=== PATIENT | female | born 1985 | race Caucasian/White ===

== ENCOUNTER 2017-03-28 18:52 | Emergency (ER) | payer MEDICAID ==
[~2017-03-28] VITALS: Ht 162.6 cm; Wt 66.1 kg
[~2017-03-28 18:52] MED LIST: PRED20TA PO
[2017-03-28] MEDS ORDERED: HYDROcodone/acetaminophen 5mg/325mg tablet PO ONE (20:05)
[2017-03-28] MEDS ORDERED: amox tr/potassium clavulanate 875/125mg TAB PO ONE (20:05)
[2017-03-28] MEDS ORDERED: HYDROcodone/acetaminophen 10/325mg tab PO ONE (20:05)
[2017-03-28] MEDS ORDERED: AMOX-422 PO (20:06)
[2017-03-28] MEDS ORDERED: HYDR-569 PO (20:06)
[2017-03-28] MEDS ORDERED: NAPR-56 PO (20:06)
[2017-03-28 20:19] VITALS: BP 146/82
== END 2017-03-28 20:20 | disposition home or self-care (01) ==
LOC: ER 18:52
DX: K04.7 Periapical abscess without sinus (principal)
CPT/HCPCS: 99284

== ENCOUNTER 2017-05-26 18:22 | Emergency (ER) | payer MEDICAID ==
[~2017-05-26] VITALS: Ht 162.6 cm; Wt 62.6 kg
[~2017-05-26 18:22] MED LIST changes: +HYDR-569 PO
[2017-05-26] MEDS ORDERED: HYDROcodone/acetaminophen 10/325mg tab PO ONE (21:20)
[2017-05-26 21:22] VITALS: BP 147/84
[2017-05-26] MEDS ORDERED: HYDR-565 PO (21:24)
[2017-05-26] MEDS ORDERED: ondansetron 4mg rapidly disintigrating tab PO ONE (22:00)
== END 2017-05-26 22:06 | disposition home or self-care (01) ==
LOC: ER 18:22
DX: S62.356A Nondisplaced fracture of shaft of fifth metacarpal bone, right hand, initial encounter for closed fracture (principal); Z90.49 Acquired absence of other specified parts of digestive tract; Z79.899 Other long term (current) drug therapy; Z91.018 Allergy to other foods; W22.8XXA Striking against or struck by other objects, initial encounter; Y93.89 Activity, other specified; Y92.89 Other specified places as the place of occurrence of the external cause; Y99.9 Unspecified external cause status
CPT/HCPCS: 29125; 73130; 99284; A6449

== ENCOUNTER 2017-06-08 10:58 | Outpatient (CLI) | payer MEDICAID ==
[2017-06-08 11:00] VITALS: BP 122/82
== END 2017-06-08 12:00 | disposition home or self-care (01) ==
LOC: ORTHO 10:58
PROVIDERS: ATTEND Nurse Practitioner Family
DX: S62.326A Displaced fracture of shaft of fifth metacarpal bone, right hand, initial encounter for closed fracture (principal); F32.9 Major depressive disorder, single episode, unspecified; F41.9 Anxiety disorder, unspecified; Z91.018 Allergy to other foods; X58.XXXA Exposure to other specified factors, initial encounter; Y93.89 Activity, other specified; Y92.89 Other specified places as the place of occurrence of the external cause; Y99.8 Other external cause status
CPT/HCPCS: 29260; 73130; 99213

== ENCOUNTER 2018-10-09 16:32 | Emergency (ER) | payer MEDICAID ==
[~2018-10-09] VITALS: Ht 162.6 cm; Wt 79.0 kg
[~2018-10-09 16:32] MED LIST changes: +HYDR-4383 PO; -HYDR-569 PO
[2018-10-09] MEDS ORDERED: ondansetron/PF 4mg/2ml inj IV ONE (16:55)
[2018-10-09] MEDS ORDERED: normal saline 1000ML IV soln IVB ONE (16:55)
[2018-10-09] MEDS ORDERED: morphine 4 MG/ML inj SYRINge IV PRN (16:55)
[2018-10-09] MEDS ORDERED: ketorolac trometh. 30mg/ml inj. IV ONE (16:55)
--- NOTE | 2018-10-09 17:12 | NUR ---
US IN ROOM
[2018-10-09 17:13] LABS: BASOPHILS # (AUTO) 0.1 X10'3 (0-0.2); BASOPHILS % (AUTO) 0.7 % (0-1); EOSINOPHILS # (AUTO) 0.2 X10'3 (0-0.9); EOSINOPHILS % (AUTO) 2.5 % (0-6); HEMATOCRIT 43.6 % (35.0-45.0); HEMOGLOBIN 14.6 g/dl (12.0-16.0); LYMPHOCYTES # (AUTO) 3.5 X10'3 (1.1-4.8); LYMPHOCYTES % (AUTO) 37.1 % (21-51); MEAN CORPUSCULAR HEMOGLOBIN 30.9 PG (27.0-31.0); MEAN CORPUSCULAR HGB CONC 33.5 g/dL (33.0-36.5); MEAN CORPUSCULAR VOLUME 92.2 FL (78-98); MONOCYTES # (AUTO) 0.8 X10'3 (0-0.9); MONOCYTES % (AUTO) 8.4 % (2-12); NEUTROPHILS # (AUTO) 4.8 X10'3 (1.8-7.7); NEUTROPHILS % (AUTO) 51.3 % (42-75); PLATELET COUNT 256 X10'3 (140-440); RED BLOOD COUNT 4.72 X10'6 (4.20-5.60); RED CELL DISTRIBUTION WIDTH 14.3 % (11.5-14.5); WHITE BLOOD COUNT 9.5 X10'3 (4.5-11.0)
[2018-10-09 17:19] LABS: CLARITY,URINE SLIGHTLY CLOUDY (Clear); COLOR,URINE YELLOW (Yellow); GLUCOSE, URINE NEGATIVE (Neg); KETONES,URINE NEGATIVE (Neg); LEUKOCYTE ESTERASE ,URINE NEGATIVE (Neg); NITRITES, URINE NEGATIVE (Neg); OCCULT BLOOD,URINE NEGATIVE (Neg); PROTEIN,URINE NEGATIVE (Neg); UROBILINOGEN,URINE 0.2 E.U/dL (0.2-1.0)
[2018-10-09 17:21] LABS: URINE HCG NEGATIVE (NEG)
[2018-10-09 17:26] LABS: ALANINE AMINOTRANSFERASE 21 U/L (12-78); ALBUMIN 3.6 G/DL (3.4-5.0); ALBUMIN/GLOBULIN RATIO 1.1 (1.1-1.5); ALKALINE PHOSPHATASE 63 IU/L (46-116); ANION GAP 6 (8-16); ASPARTATE AMINO TRANSFERASE 12 U/L (10-37); BILIRUBIN,TOTAL 0.2 MG/DL (0.1-1.0); BLOOD UREA NITROGEN 2 MG/DL (7-18); BUN/CREATININE RATIO 2.2 (6.6-38.0); CALCIUM 8.6 MG/DL (8.5-10.1); CHLORIDE 105 MMOL/L (99-107); CREATININE 0.92 MG/DL (0.40-0.90); GLUCOSE 101 MG/DL (70-104); POTASSIUM 3.4 MMOL/L (3.5-5.1); SODIUM 140 MMOL/L (135-145); TOTAL CARBON DIOXIDE 29.1 MMOL/L (24-32); TOTAL PROTEIN 6.9 G/DL (6.4-8.2); eGFR 71 ML/MIN
[2018-10-09 17:28] LABS: UA COLLECTION TYPE CLN CATCH MIDSTREAM
[2018-10-09 17:29] LABS: BACTERIA,URINE 2+ /HPF (Neg); RBC,URINE NONE SEEN /HPF (0-2); SQUAMOUS EPITHELIAL CELL,UR MANY /LPF (FEW); WBC,URINE 0-4 /HPF (0-4)
--- NOTE | 2018-10-09 17:36 | NUR ---
us in room
[2018-10-09] MEDS ORDERED: HYDROcodone/acetaminophen 5mg/325mg tablet PO ONE (17:55)
[2018-10-09] MEDS ORDERED: NAPR-56 PO (18:08)
[2018-10-09 18:10] VITALS: BP 126/70
== END 2018-10-09 18:12 | disposition home or self-care (01) ==
LOC: ER 16:33
DX: R10.32 Left lower quadrant pain (principal); F41.9 Anxiety disorder, unspecified; F32.9 Major depressive disorder, single episode, unspecified; Z90.49 Acquired absence of other specified parts of digestive tract; Z79.899 Other long term (current) drug therapy
CPT/HCPCS: 36415; 76830; 76856; 80053; 81001; 81025; 85025; 85610; 96374; 96375; 99284; J1885; J2270; J2405; J7030

== ENCOUNTER 2018-11-08 17:15 | Emergency (ER) | payer MEDICAID ==
[~2018-11-08] VITALS: Ht 162.6 cm; Wt 76.9 kg
[~2018-11-08 17:15] MED LIST changes: +NAPR-56 PO
[2018-11-08] MEDS ORDERED: cyclobenzaprine 10mg tablet PO ONE (17:45)
[2018-11-08] MEDS ORDERED: morphine 4 MG/ML inj SYRINge IM ONE ×2 (17:45→18:45)
[2018-11-08] MEDS ORDERED: HYDR-3965 PO (18:26)
[2018-11-08] MEDS ORDERED: CYCL-1 PO (18:26)
--- NOTE | 2018-11-08 18:42 | NUR ---
MD GALLOWAY MADE AWARE OF PT CONTINUED PAIN OF 10/31. NEW ORDER OF MORPHINE RECEIVED.
[2018-11-08 19:15] VITALS: BP 129/65
== END 2018-11-08 19:13 | disposition home or self-care (01) ==
LOC: ER 17:16
DX: S30.0XXA Contusion of lower back and pelvis, initial encounter (principal); F41.9 Anxiety disorder, unspecified; F17.200 Nicotine dependence, unspecified, uncomplicated; F32.9 Major depressive disorder, single episode, unspecified; Z88.6 Allergy status to analgesic agent; Z88.8 Allergy status to other drugs, medicaments and biological substances; Z79.899 Other long term (current) drug therapy; Z90.49 Acquired absence of other specified parts of digestive tract; W10.8XXA Fall (on) (from) other stairs and steps, initial encounter; Y93.89 Activity, other specified; Y92.89 Other specified places as the place of occurrence of the external cause; Y99.8 Other external cause status
CPT/HCPCS: 72070; 72100; 96372; 99283; J2270

== ENCOUNTER 2018-12-31 17:11 | Emergency (ER) | payer MEDICAID ==
[~2018-12-31] VITALS: Ht 162.6 cm; Wt 75.0 kg
[~2018-12-31 17:11] MED LIST changes: +CYCL-1 PO; -NAPR-56 PO
[2018-12-31 18:50] LABS: CLARITY,URINE CLOUDY (Clear); COLOR,URINE STRAW (Yellow); GLUCOSE, URINE NEGATIVE (Neg); KETONES,URINE NEGATIVE (Neg); LEUKOCYTE ESTERASE ,URINE TRACE (Neg); NITRITES, URINE NEGATIVE (Neg); OCCULT BLOOD,URINE NEGATIVE (Neg); PROTEIN,URINE NEGATIVE (Neg); UROBILINOGEN,URINE 0.2 E.U/dL (0.2-1.0)
[2018-12-31 18:54] LABS: URINE HCG NEGATIVE (NEG)
[2018-12-31 18:55] LABS: UA COLLECTION TYPE CLN CATCH MIDSTREAM
[2018-12-31 18:59] LABS: BACTERIA,URINE 2+ /HPF (Neg); MUCUS STRANDS FEW /LPF (Neg); RBC,URINE NONE SEEN /HPF (0-2); SQUAMOUS EPITHELIAL CELL,UR MANY /LPF (FEW); WBC,URINE 0-4 /HPF (0-4)
[2018-12-31] MEDS ORDERED: iohexol 300mg/ml 100ml inj. ONE (20:05)
[2018-12-31] MEDS ORDERED: proCHLORperazine 10 MG/2 ml inj IV ONE (20:05)
[2018-12-31] MEDS ORDERED: LORazepam 2 mg/ml vial IV ONE (20:05)
[2018-12-31] MEDS ORDERED: normal saline 1000ML IV soln IVB ONE (20:05)
[2018-12-31] MEDS ORDERED: ondansetron/PF 4mg/2ml inj IV ONE (20:20)
[2018-12-31 20:32] LABS: BASOPHILS # (AUTO) 0.1 X10'3 (0-0.2); BASOPHILS % (AUTO) 0.9 % (0-1); EOSINOPHILS # (AUTO) 0.1 X10'3 (0-0.9); EOSINOPHILS % (AUTO) 1.2 % (0-6); HEMATOCRIT 43.5 % (35.0-45.0); LYMPHOCYTES # (AUTO) 2.8 X10'3 (1.1-4.8); LYMPHOCYTES % (AUTO) 29.1 % (21-51); MEAN CORPUSCULAR HEMOGLOBIN 31.6 PG (27.0-31.0); MEAN CORPUSCULAR HGB CONC 34.5 g/dL (33.0-36.5); MEAN CORPUSCULAR VOLUME 91.6 FL (78-98); MEAN PLATELET VOLUME 8.3 FL (7.4-10.4); MONOCYTES # (AUTO) 0.6 X10'3 (0-0.9); MONOCYTES % (AUTO) 6.3 % (2-12); NEUTROPHILS # (AUTO) 5.9 X10'3 (1.8-7.7); NEUTROPHILS % (AUTO) 62.5 % (42-75); PLATELET COUNT 290 X10'3 (140-440); RED BLOOD COUNT 4.75 X10'6 (4.20-5.60); RED CELL DISTRIBUTION WIDTH 13.2 % (11.5-14.5); WHITE BLOOD COUNT 9.5 X10'3 (4.5-11.0)
[2018-12-31] MEDS ORDERED: morphine 4 MG/ML inj SYRINge IV ONE (20:40)
[2018-12-31 20:41] LABS: ALANINE AMINOTRANSFERASE 17 U/L (12-78); ALBUMIN/GLOBULIN RATIO 1.1 (1.1-1.5); ALKALINE PHOSPHATASE 70 IU/L (46-116); ANION GAP 10 (8-16); ASPARTATE AMINO TRANSFERASE 12 U/L (10-37); BILIRUBIN,TOTAL 0.2 MG/DL (0.1-1.0); BLOOD UREA NITROGEN 13 MG/DL (7-18); BUN/CREATININE RATIO 15.5 (6.6-38.0); CALCIUM 8.9 MG/DL (8.5-10.1); CHLORIDE 107 MMOL/L (99-107); CREATININE 0.84 MG/DL (0.40-0.90); GLUCOSE 96 MG/DL (70-104); LIPASE 131 U/L (73-393); POTASSIUM 3.9 MMOL/L (3.5-5.1); SODIUM 141 MMOL/L (135-145); TOTAL CARBON DIOXIDE 24.5 MMOL/L (24-32); TOTAL PROTEIN 7.7 G/DL (6.4-8.2); eGFR 79 ML/MIN
[2018-12-31] MEDS ORDERED: diphenhydrAMINE 50 mg/ml inj IV ONE ×2 (20:45)
[2018-12-31] MEDS ORDERED: METO-292 PO (21:14)
[2018-12-31 21:23] VITALS: BP 110/83
== END 2018-12-31 21:27 | disposition home or self-care (01) ==
LOC: ER 17:12
DX: G89.18 Other acute postprocedural pain (principal); G43.909 Migraine, unspecified, not intractable, without status migrainosus; F41.9 Anxiety disorder, unspecified; Z90.49 Acquired absence of other specified parts of digestive tract; Z79.899 Other long term (current) drug therapy; Z88.6 Allergy status to analgesic agent; Z88.5 Allergy status to narcotic agent
CPT/HCPCS: 36415; 74177; 80053; 81001; 81025; 83690; 85025; 96374; 96375; 99284; J0780; J1200; J2060; J2270; J2405; J7030; Q9967

== ENCOUNTER 2019-11-02 16:49 | Emergency (ER) | payer MEDICAID ==
[~2019-11-02] VITALS: Ht 162.6 cm; Wt 70.0 kg
[~2019-11-02 16:49] MED LIST changes: +METO-292 PO
[2019-11-02] MEDS ORDERED: PENI500T2 PO (18:37)
[2019-11-02] MEDS ORDERED: HYDROcodone/acetaminophen 5mg/325mg tablet PO ONE (18:40)
[2019-11-02 19:03] VITALS: BP 141/89
== END 2019-11-02 19:04 | disposition home or self-care (01) ==
LOC: ER 16:50
DX: K08.89 Other specified disorders of teeth and supporting structures (principal); F41.9 Anxiety disorder, unspecified; F32.9 Major depressive disorder, single episode, unspecified; Z90.49 Acquired absence of other specified parts of digestive tract; Z88.8 Allergy status to other drugs, medicaments and biological substances; Z88.6 Allergy status to analgesic agent; Z79.2 Long term (current) use of antibiotics; Z79.899 Other long term (current) drug therapy
CPT/HCPCS: 99283

== ENCOUNTER 2020-03-16 14:23 | Emergency (ER) | payer MEDICAID ==
[~2020-03-16] VITALS: Ht 162.6 cm; Wt 70.9 kg
[2020-03-16 14:28] VITALS: BP 149/87
[2020-03-16] MEDS ORDERED: HYDROcodone/acetaminophen 5mg/325mg tablet PO ONE (15:10)
== END 2020-03-16 15:37 | disposition home or self-care (01) ==
LOC: ER 14:24
DX: M25.552 Pain in left hip (principal); M25.551 Pain in right hip; Z87.81 Personal history of (healed) traumatic fracture; Z90.49 Acquired absence of other specified parts of digestive tract; Z88.6 Allergy status to analgesic agent; Z88.8 Allergy status to other drugs, medicaments and biological substances; Z91.018 Allergy to other foods; Z79.899 Other long term (current) drug therapy
CPT/HCPCS: 73502; 73564; 99284

== ENCOUNTER 2020-09-24 18:30 | Emergency (ER) | payer MEDICAID ==
[~2020-09-24] VITALS: Ht 162.6 cm; Wt 69.0 kg
[2020-09-24 19:19] LABS: URINE HCG NEGATIVE (NEG)
[2020-09-24 19:24] LABS: CLARITY,URINE SLIGHTLY CLOUDY (Clear); COLOR,URINE YELLOW (Yellow); GLUCOSE, URINE NEGATIVE (Neg); KETONES,URINE NEGATIVE (Neg); LEUKOCYTE ESTERASE ,URINE SMALL (Neg); NITRITES, URINE NEGATIVE (Neg); OCCULT BLOOD,URINE NEGATIVE (Neg); PROTEIN,URINE NEGATIVE (Neg); UROBILINOGEN,URINE 0.2 E.U/dL (0.2-1.0)
[2020-09-24 19:35] LABS: UA COLLECTION TYPE CLN CATCH MIDSTREAM
[2020-09-24 19:37] LABS: BACTERIA,URINE NONE SEEN /HPF (Neg); RBC,URINE NONE SEEN /HPF (0-2); SQUAMOUS EPITHELIAL CELL,UR MODERATE /LPF (FEW); WBC,URINE 0-4 /HPF (0-4)
[2020-09-24 19:38] LABS: MUCUS STRANDS MODERATE /LPF (Neg)
[2020-09-24 21:20] VITALS: BP 125/83
== END 2020-09-24 22:19 | disposition left against medical advice (07) ==
LOC: ER 18:31
DX: R10.84 Generalized abdominal pain (principal); Z53.21 Procedure and treatment not carried out due to patient leaving prior to being seen by health care provider
CPT/HCPCS: 81001; 81025; 87088

== ENCOUNTER 2022-08-19 09:57 | Outpatient (CLI) | payer MEDICAID | END 2022-08-19 23:59 | disposition home or self-care (01) | LOC: RAD 09:57 | PROVIDERS: ATTEND Psychiatry & Neurology Neurology | DX: R68.89 Other general symptoms and signs (principal) | CPT/HCPCS: 95816 ==

== ENCOUNTER 2024-06-01 10:42 | Emergency (ER) | payer MEDICAID ==
[~2024-06-01] VITALS: Ht 162.6 cm; Wt 64.0 kg
[2024-06-01] MEDS ORDERED: VORT10TA PO (12:24)
[2024-06-01] MEDS ORDERED: ONDA-243 PO (12:24)
[2024-06-01] MEDS ORDERED: ALPR0.5T9 PO (12:24)
[2024-06-01] MEDS ORDERED: BUPR1FIL20 SL (12:24)
[2024-06-01] MEDS: haloperidol lactate 5mg/ml inj IM ONE (12:45)
[2024-06-01] MEDS: diphenhydrAMINE 50 mg/ml inj IV ONE (12:45)
[2024-06-01] MEDS: acetaminophen 1,000mg/100ml IV 100 ML IV STA (13:43)
[2024-06-01] MEDS: dexamethasone sod phosphate 10mg/ml inj IV STA (13:43)
[2024-06-01 14:46] VITALS: TEMP 98.6
[2024-06-01] MEDS: diazepam inj 5 MG/ML inj. IV ONE (14:55)
[2024-06-01 15:01] VITALS: BP 98/72; PULSE 74; RESP 16; O2SAT 98
[2024-06-01] MEDS ORDERED: DIAZ-351 PO (15:02)
== END 2024-06-01 15:09 | disposition home or self-care (01) ==
LOC: ER 10:42
DX: R51.9 Headache, unspecified (principal); M54.2 Cervicalgia; R11.0 Nausea; F41.9 Anxiety disorder, unspecified; F32.A Depression, unspecified; F17.210 Nicotine dependence, cigarettes, uncomplicated; Z86.73 Personal history of transient ischemic attack (TIA), and cerebral infarction without residual deficits; Z90.49 Acquired absence of other specified parts of digestive tract; Z88.8 Allergy status to other drugs, medicaments and biological substances; Z91.040 Latex allergy status; Z79.899 Other long term (current) drug therapy
CPT/HCPCS: 70450; 96365; 96375; 99285; J0131; J1100; J3360

== ENCOUNTER 2024-07-19 18:24 | Emergency (ER) | payer MEDICAID ==
[~2024-07-19] VITALS: Ht 162.6 cm; Wt 60.1 kg
[~2024-07-19 18:24] MED LIST changes: +ALPR0.5T9 PO; +BUPR1FIL20 SL; +DIAZ-351 PO; +ONDA-243 PO; +VORT10TA PO
[2024-07-19 18:27] VITALS: BP 161/78; PULSE 81; O2SAT 100
[2024-07-19 19:00] VITALS: RESP 18
--- NOTE | 2024-07-19 19:48 | Physician Documentation ---
History of Present Illness ~ General Chief Complaint: Multiple Medical Complaints Stated Complaint: MULTIPLE MEDICAL ISSUES Time Seen by MD: 19:33 Primary Medical Doctor: [facility] History of Present Illness Initial Comments This is a 38-year-old female who presents with multiple vague medical complaints that she has been seen by primary care provider for, patient reports that she is worried that she may have aspirated some vomit approximately four days ago as she woke up with nausea and had an episode of vomiting followed by coughing. Patient reports that she has some pain in her posterior right ribs that is worse when deep breathing and coughing. Patient additionally reports that she is being worked up by primary care provider for some nodules in her neck and this is causing sore throat. Medication Reconciliation Allergies: Coded Allergies: latex (Verified Allergy, Intermediate, 09/24/20) buspirone (Unverified Allergy, Unknown, 11/08/18) ketorolac (Unverified Allergy, Unknown, 11/08/18) tramadol (Unverified Allergy, Unknown, 11/08/18) Uncoded Allergies: MUSHROOMS (Allergy, Unknown, 06/06/17) Scheduled Buprenorphine HCl/Naloxone HCl (Buprenorphine-Nalox 8-2Mg Film), 0.5-1 STRIP SL TID, (Reported) Hydrocodone/Acetaminophen ([place] 5-325 Tablet), 1 TAB PO Q12H PRN Prednisone* (Prednisone*), 2 TAB PO DAILY Vortioxetine Hydrobromide (Brintellix), 1 TAB PO DAILY, (Reported) Scheduled PRN Alprazolam (Alprazolam), 1 TAB PO BID PRN for anxiety attack, (Reported) Cyclobenzaprine* (Cyclobenzaprine*), 1 TAB PO TID PRN for pain Diazepam (Diazepam), 5 MG PO Q8H PRN for muscle spasms Metoclopramide HCl (Reglan), 1 TAB PO Q8H PRN for migraine ONDANSETRON ODT 4mg tablet (Ondansetron Odt), 1 TAB PO Q8H PRN for nausea, (Reported) Past Medical History Past Medical History: CVA/TIA/Stroke, Headache, Bronchitis, *MUSCULOSKELETAL*, Extremity Fracture, Anxiety, Depression Past Surgical History: cholecystectomy Alcohol Use: None Drug Use: none Lives with: Spouse, Family Lives In: Home Review of Systems ROS Cough and sore throat as stated above in the HPI, otherwise all systems are reviewed and negative. Physical Exam Physical Exam Vital Signs: Temperature: 99.4, Source: Oral, Heart Rate: 81, Respiratory Rate: 18, BP: 161/78, Pulse Oximetry: 100, Weight: 60.100 Oxygen Flow Rate: 0 Physical Exam VITALS: Reviewed and as above. GENERAL: Alert, nontoxic appearing, no apparent distress. HEENT: Uvula midline, no tonsillar swelling or erythema, no lymphadenopathy RESPIRATORY: No increased work of breathing, no respiratory distress, speaking in full clear sentences, clear lung sounds in all lilly CV: Regular rate and rhythm no murmur BACK: No CVA tenderness Progress Results/Orders Results/Orders Orders - CLAU SARABIA RELOCATION ASSOCIATE Chest,Two Views (07/19/24 19:46) Completed Orders - CLAU SARABIA RELOCATION ASSOCIATE Chest,Two Views (07/19/24 19:46) Ketorolac Trometh 15mg/Ml Vial (Toradol (07/19/24 20:25) Vital Signs 07/19/24 07/19/24 07/19/24 18:27 19:00 20:22 Temp 99.4 98.7 Pulse 81 Resp 16 18 B/P (MAP) 161/78 Pulse Ox 100 O2 Flow Rate 0 EKG/XRAY/CT/US/VASC/MRI Chest X-Ray : Additional Comments Exam: CHEST,TWO VIEWS CHEST RADIOGRAPH Indication: Painful Cough Technique: Frontal and lateral view of the chest was obtained Comparison: None FINDINGS: Lines and Tubes: None Lungs: Clear. Pleura: No effusion. No pneumothorax. Cardiomediastinal contours: Unremarkable Bones: Unremarkable IMPRESSION: No abnormality. Electronically Signed by:FRANCISCO LOPEZ MD Date & Time: 07/19/241958 Dictated by: FRANCISCO LOPEZ MD Dictation date and time: 07/19/241943 I have reviewed and agree with the radiology report. I have reviewed and interpreted the imaging as: No focal consolidation or pneumothorax Medical Decision Making Findings This 38-year-old female presented with many vague concerns which she is seeing her primary care provider including concern for nodules in her neck which he is unable to specify which is being worked up by a primary care provider she believes he is causing her a sore throat, there was no cervical lymphadenopathy or masses on physical exam, patient additionally reported concern for a cough following an episode of vomiting she has concern for aspiration pneumonia, patient had clear lung sounds and a chest x-ray did not demonstrate evidence of pneumonia. Given patient's sore throat and cough this is consistent with an upper respiratory tract infection most likely viral origin. Patient this otherwise well-appearing with benign physical exam stable vital signs, patient is appropriate for outpatient follow up. Patient provided home care instructions, follow up instructions, and return to care precautions. Differential Diagnosis Aspiration pneumonia, pneumonia, bronchitis, strep pharyngitis, malignancy Departure Time of Disposition: 20:17 Disposition: 01 HOME / SELF CARE / HOMELESS Impression: Primary Impression: Cough Qualified Codes: R05.1 - Acute cough Condition: Improved Discharge Instructions: Cough, Adult Additional Instructions: Your chest x-ray was clear and your physical exam did not demonstrate any eviden ce of pneumonia. You may use ibuprofen and or Tylenol as needed for your sore throat as directed by the [id number] packaging. Please follow up with your primary care provider in the next few days. Please return to the emergency department for any new or worsening concerning symptoms. Referrals: NO PRIMARY CARE PROVIDER (PCP) Education Educated: Patient Educated regarding: diagnosis, treatment, prognosis, need for follow up Signature Scribe Signature: No scribe Attestation: The note accurately reflects work and decisions made by me.REMY Cosme 07/20/24 02:13 CLAU SARABIA July 19, 2024 19:48
--- NOTE | 2024-07-19 20:01 | RADIOLOGY REPORT ---
CHEST RADIOGRAPH Indication: Painful Cough Technique: Frontal and lateral view of the chest was obtained Comparison: None FINDINGS: Lines and Tubes: None Lungs: Clear. Pleura: No effusion. No pneumothorax. Cardiomediastinal contours: Unremarkable Bones: Unremarkable IMPRESSION: No abnormality.
[2024-07-19 20:22] VITALS: TEMP 98.7
[2024-07-19] MEDS: ketorolac trometh 15mg/ml vial 15 MG/ML ML IM ONE (20:31)
== END 2024-07-19 20:32 | disposition home or self-care (01) ==
LOC: ER 18:25
DX: R05.9 Cough, unspecified (principal); R11.2 Nausea with vomiting, unspecified; R07.81 Pleurodynia; F41.9 Anxiety disorder, unspecified; F32.A Depression, unspecified; Z86.73 Personal history of transient ischemic attack (TIA), and cerebral infarction without residual deficits; Z90.49 Acquired absence of other specified parts of digestive tract; Z88.8 Allergy status to other drugs, medicaments and biological substances; Z91.040 Latex allergy status; Z79.899 Other long term (current) drug therapy
CPT/HCPCS: 71046; 99283

== ENCOUNTER 2024-12-28 15:51 | Emergency (ER) | payer MEDICAID ==
[~2024-12-28] VITALS: Ht 162.6 cm; Wt 66.4 kg
--- NOTE | 2024-12-28 16:14 | ELECTROCARDIOGRAPH REPORT ---
[facility] Test Date: 2024-12-28 Test Time: 16:01:42 Pat Name: SHARMILA QUESADA Department: EMERGENCY ROOM Room: Gender: F Washroom Attendant: PM : 1985 Requested By: DEPARTMENT EMERGENCY Order Number: [id number] Reading MD: Dr. CRISSY Govea Measurements Intervals [place] Rate: 81 P: 37 TN: 153 QRS: 7 QRSD: 93 T: 52 QT: 369 QTc: 429 Interpretive Statements Sinus rhythm Probable left atrial enlargement Low voltage, precordial leads Electronically Signed On 12-30-2024 11:47:[address] CRISSY Govea Please click the below link to view image of tracing.
[2024-12-28 18:05] LABS: MEAN PLATELET VOLUME 8.9 FL (7.4-10.4); RED CELL DISTRIBUTION WIDTH 13.5 % (11.5-14.5)
--- NOTE | 2024-12-28 18:06 | VASCULAR REPORT ---
Left lower extremity venous duplex Clinical History: Swelling. Comparison: None Technique: Duplex Doppler evaluation of the deep venous systems of the left lower extremity from the common femoral veins to the popliteal veins including color Doppler and spectral/pulsed waveform analysis was performed. LEFT SIDE: The common femoral vein demonstrates appropriate compressibility and waveform variability. There is compressibility/patency of the great saphenous vein at the proximal thigh. The femoral vein demonstrates appropriate compressibility and waveform variability. The deep femoral vein demonstrates appropriate compressibility and waveform variability. The popliteal vein demonstrates appropriate compressibility and waveform variability. There is normal compressibility at the tibioperoneal trunk. Acute appearing thrombus within the peroneal vein on the left. Impression: Acute appearing occlusive thrombus within the peroneal vein below the knee. No above knee extension.
[2024-12-28 18:22] VITALS: BP 112/70; TEMP 97.9
[2024-12-28 18:33] LABS: APTT 26 SECONDS (22-32); INR 1.0 INR
[2024-12-28] MEDS ORDERED: HYDROcodone/acetaminophen 10/325mg tab PO ONE (18:45)
[2024-12-28] MEDS ORDERED: enoxaparin 100mg/ml syringe SUBCUT ONE (18:45)
--- NOTE | 2024-12-28 18:50 | Physician Documentation ---
History of Present Illness ~ Chief Complaint: Leg Pain Stated Complaint: SEE CHIEF COMPLAINT Time Seen by MD: 17:02 OK to notify your PCP?: Yes Primary Medical Doctor: [facility], [place] Source: patient Mode of Arrival: POV, Wheelchair Exam Limitations: no limitations HPI This is a 39-year-old female who comes in complaining of pain of the left calf that has had for the past couple of days that has gotten progressively worse. States earlier today her leg below the knee was cool and discolored as well as swollen. She states that is seemed to have resolved. She denies chest pain or shortness of breath. 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 She has not no residual deficits from the prior strokes. She says she has recently been seen by [facility] hematology for this issue. She denies exogenous hormone use so she does smoke. She denies recent prolonged immobilizations or surgeries. Tetanus witin 5 years: Yes Medication Reconciliation Allergies: Coded Allergies: latex (Verified Allergy, Intermediate, 12/28/24) buspirone (Unverified Allergy, Unknown, 12/28/24) ibuprofen (Verified Allergy, Unknown, 12/28/24) PT STATES DR IN [place] TOLD HER TO STOP TAKING ketorolac (Unverified Allergy, Unknown, 12/28/24) tramadol (Unverified Allergy, Unknown, 12/28/24) Uncoded Allergies: MUSHROOMS (Allergy, Unknown, 06/06/17) Scheduled Buprenorphine HCl/Naloxone HCl (Buprenorphine-Nalox 8-2Mg Film), 0.5-1 STRIP SL TID, (Reported) Hydrocodone/Acetaminophen ([place] 5-325 Tablet), 1 TAB PO Q12H PRN Prednisone* (Prednisone*), 2 TAB PO DAILY Vortioxetine Hydrobromide (Brintellix), 1 TAB PO DAILY, (Reported) Scheduled PRN Alprazolam (Alprazolam), 1 TAB PO BID PRN for anxiety attack, (Reported) Cyclobenzaprine* (Cyclobenzaprine*), 1 TAB PO TID PRN for pain Diazepam (Diazepam), 5 MG PO Q8H PRN for muscle spasms Metoclopramide HCl (Reglan), 1 TAB PO Q8H PRN for migraine ONDANSETRON ODT 4mg tablet (Ondansetron Odt), 1 TAB PO Q8H PRN for nausea, (Reported) Past Medical History Past Medical History: CVA/TIA/Stroke, Headache, Bronchitis, *MUSCULOSKELETAL*, Extremity Fracture, Anxiety, Depression Past Surgical History: cholecystectomy Alcohol Use: None Drug Use: none Lives with: Spouse, Family Lives In: Home Physical Exam Vital Signs: Temperature: 97.9, Source: Oral, Heart Rate: 73, Respiratory Rate: 16, BP: 112/70, Pulse Oximetry: 96, Weight: 66.400 Oxygen Flow Rate: 0 Pulse Oximetry Reflects: adequate oxygenation General Appearance: alert, WD/WN, no apparent distress Legs To inspection of the right lower extremity no obvious edema when compared with the right. No discoloration. No change in skin color or temperature to palpation. Bladder herself these pulses 2+ and equal. There is tenderness to palpation of the calf without obvious palpable cords. Positive Homans sign. Cap refill less than 2 seconds and brisk in the digits of the left foot. Progress Results/Orders Results/Orders Orders - GARRETT TORRES Vl Venous (12/28/24 17:01) Hydromorphone 1 Mg/Ml/Pf (Dilaudid Inj.) (12/28/24 18:55) Completed Orders - GARRETT TORRES Vl Venous (12/28/24 17:01) Cbc/Diff (12/28/24 17:43) D-Dimer (12/28/24 17:43) Pt Inr (12/28/24 17:43) PTT (12/28/24 17:43) Hydrocodone/Apap 10/325 ([place] 10/325mg (12/28/24 18:45) Enoxaparin Syringe (Lovenox Syringe) (12/28/24 18:45) Enoxaparin Syringe (Lovenox Syringe) (12/28/24 18:50) Enoxaparin Syringe (Lovenox Syringe) (12/28/24 18:50) Vital Signs 12/28/24 12/28/24 12/28/24 12/28/24 16:25 16:56 17:05 18:22 Temp 97.9 97.9 97.9 Pulse 81 83 73 Resp 16 18 18 16 B/P (MAP) 120/64 124/71 (88) 112/70 (84) Pulse Ox 95 96 96 O2 Flow Rate 0 0 0 Laboratory Tests Test 12/28/24 16:05 White Blood Count 9.6 Red Blood Count 4.92 Hemoglobin 15.1 Hematocrit 43.7 Mean Corpuscular Volume 88.7 Mean Corpuscular Hemoglobin 30.6 Mean Corpuscular Hemoglobin Concent 34.5 Red Cell Distribution Width 13.5 Platelet Count 238 Mean Platelet Volume 8.9 Neutrophils (%) (Auto) 60.4 Lymphocytes (%) (Auto) 31.9 Monocytes (%) (Auto) 6.5 Eosinophils (%) (Auto) 0.8 Basophils (%) (Auto) 0.4 Neutrophils # (Auto) 5.8 Lymphocytes # (Auto) 3.1 Monocytes # (Auto) 0.6 Eosinophils # (Auto) 0.1 Basophils # (Auto) 0.0 CBC Comment Prothrombin Time 10.2 INR International Normalized Ratio 1.0 Activated Partial Thromboplast Time 26 D-Dimer 1.14 H D-Dimer Comment Coagulation Comments Medical Decision Making Additional information obtaine: N/A Findings Doppler ultrasound left lower extremity did show an acute appearing thrombus of the peroneal vein that does not extend past the knee. D-dimer was elevated. The patient denies chest pain or shortness of breath. I gave the patient weight based Lovenox in his request an injection of Dilaudid 1 mg IM. We are going to send the patient home with a prescription for Eliquis with the instructions to elevate her leg and follow up back up with the primary care physician who gabbie fernandez sent her here with concerns of DVT. Return to the ER for any worsening or concerning symptoms. General Diff Dx:Considerations: Include: Other Knee Diff Dx:Considerations: Include: Other Ankle Diff Dx:Considerations: Include: Other Foot Diff Dx:Considerations: Include: Other Toe Diff Dx:Considerations: Include: Other Additional Comment DVT. Muscle spasm. Calf cramps. Departure Disposition: HOME / SELF CARE / HOMELESS Impression: Primary Impression: Deep vein thrombosis Condition: Stable Discharge Instructions: Deep Vein Thrombosis Additional Instructions: Take the medications as prescribed. Elevate the leg frequently. Follow up with the primary care physician for recheck in the coming week. Return to the ER for any worsening or concerning symptoms Referrals: NO PRIMARY CARE PROVIDER (PCP) Prescriptions Apixaban (Eliquis) 5 Mg (74 Tabs) Tab.ds.pk 1 TAB PO UD for 30 Days, #74 TAB 0 Refills Take 10 mg p.o. twice a day for the 1st seven days followed by 5 mg p.o. twice a day. Prov: GARRETT TORRES 12/28/24 Signature Scribe Signature: No scribe Attestation: The note accurately reflects work and decisions made by me.Garrett LANIER 12/28/24 19:04 GARRETT TORRES Dec 28, 2024 18:50
[2024-12-28] MEDS ORDERED: APIX5TAB5 PO (19:03)
[2024-12-28] MEDS: enoxaparin 40mg/0.4ml syringe SQ ONE (19:27)
[2024-12-28] MEDS: enoxaparin 30mg/0.3ml syringe SUBCUT ONE (19:31)
[2024-12-28 19:48] VITALS: PULSE 78; RESP 16; O2SAT 96
== END 2024-12-28 19:52 | disposition home or self-care (01) ==
LOC: ER 15:53
DX: I82.4Z2 Acute embolism and thrombosis of unspecified deep veins of left distal lower extremity (principal); Z86.73 Personal history of transient ischemic attack (TIA), and cerebral infarction without residual deficits; Z88.5 Allergy status to narcotic agent; Z88.6 Allergy status to analgesic agent; Z88.8 Allergy status to other drugs, medicaments and biological substances; Z90.49 Acquired absence of other specified parts of digestive tract; Z91.040 Latex allergy status
CPT/HCPCS: 36415; 85025; 85379; 85610; 85730; 93005; 96372; 99285; J1171; J1650

== ENCOUNTER 2025-01-05 15:35 | Emergency (ER) | payer MEDICAID ==
[~2025-01-05] VITALS: Ht 162.6 cm; Wt 65.8 kg
[~2025-01-05 15:35] MED LIST changes: +APIX5TAB5 PO
[2025-01-05 19:11] LABS: MEAN PLATELET VOLUME 8.0 FL (7.4-10.4); RED CELL DISTRIBUTION WIDTH 13.3 % (11.5-14.5)
[2025-01-05 19:23] LABS: INR 1.2 INR
[2025-01-05 19:25] LABS: CREATININE 0.89 MG/DL (0.40-0.90); TOTAL CARBON DIOXIDE 26.9 MMOL/L (24-32); eCRCL 75 ML/MIN; eGFR 71 ML/MIN
[2025-01-05 19:38] VITALS: BP 124/45; PULSE 82; RESP 16; O2SAT 99
--- NOTE | 2025-01-05 21:26 | Physician Documentation ---
History of Present Illness ~ Chief Complaint: See Chief Complaint Stated Complaint: SEE CHIEF Time Seen by MD: 21:16 Primary Medical Doctor: [facility], [place] HPI 49-year-old female returns to the ED after recently being evaluated for a DVT. sHe was prescribed Eliquis in his currently taking the Eliquis but reports right calf pain.. He has any shortness of breath or chest pain. Initially she said she just wants something for pain. And then retracts that is statements as I really just needs something for my anxiety Day of Onset: Jan 05, 2025 Tetanus witin 5 years: Yes Medication Reconciliation Allergies: Coded Allergies: latex (Verified Allergy, Intermediate, 01/05/25) buspirone (Unverified Allergy, Unknown, 01/05/25) ibuprofen (Verified Allergy, Unknown, 01/05/25) PT STATES DR IN [place] TOLD HER TO STOP TAKING ketorolac (Unverified Allergy, Unknown, 01/05/25) tramadol (Unverified Allergy, Unknown, 01/05/25) Uncoded Allergies: MUSHROOMS (Allergy, Unknown, 06/06/17) Scheduled Apixaban (Eliquis), 1 TAB PO UD Buprenorphine HCl/Naloxone HCl (Buprenorphine-Nalox 8-2Mg Film), 0.5-1 STRIP SL TID, (Reported) Hydrocodone/Acetaminophen ([place] 5-325 Tablet), 1 TAB PO Q12H PRN Prednisone* (Prednisone*), 2 TAB PO DAILY Vortioxetine Hydrobromide (Brintellix), 1 TAB PO DAILY, (Reported) Scheduled PRN Alprazolam (Alprazolam), 1 TAB PO BID PRN for anxiety attack, (Reported) Cyclobenzaprine* (Cyclobenzaprine*), 1 TAB PO TID PRN for pain Diazepam (Diazepam), 5 MG PO Q8H PRN for muscle spasms Metoclopramide HCl (Reglan), 1 TAB PO Q8H PRN for migraine ONDANSETRON ODT 4mg tablet (Ondansetron Odt), 1 TAB PO Q8H PRN for nausea, (Reported) Past Medical History Past Medical History: CVA/TIA/Stroke, Headache, Bronchitis, *MUSCULOSKELETAL*, Extremity Fracture, Anxiety, Depression Past Surgical History: cholecystectomy Alcohol Use: None Drug Use: none Lives with: Spouse, Family Lives In: Home Review of Systems All Other Systems at this time: Reviewed and Negative ROS As stated above in the HPI, otherwise all systems are reviewed and negative. Physical Exam Vital Signs: Temperature: 97.8, Source: Oral, Heart Rate: 82, Respiratory Rate: 16, BP: 124/45, Pulse Oximetry: 99, Weight: 65.800 Oxygen Flow Rate: 0 Physical Exam General: Alert, no apparent distress. Respiratory: Lungs clear, no respiratory distress. Chest: No accessory muscle use. Cardiovascular: Regular rate and rhythm, no murmurs. Extremities: Normal range of motion, no deformity. Negative Homans sign, no redness Neurologic: Oriented x4. Psychiatric: Normal mood and affect. Skin: Normal color, warm and dry. No edema, no ecchymosis. Progress Results/Orders Results/Orders Vital Signs 01/05/25 01/05/25 15:55 19:38 Temp 97.6 97.8 Pulse 96 82 Resp 18 16 B/P (MAP) 137/80 124/45 (71) Pulse Ox 99 99 O2 Flow Rate 0 Laboratory Tests Test 01/05/25 18:58 White Blood Count 8.0 Red Blood Count 4.75 Hemoglobin 14.6 Hematocrit 42.3 Mean Corpuscular Volume 89.1 Mean Corpuscular Hemoglobin 30.7 Mean Corpuscular Hemoglobin Concent 34.5 Red Cell Distribution Width 13.3 Platelet Count 271 Mean Platelet Volume 8.0 Neutrophils (%) (Auto) 48.5 Lymphocytes (%) (Auto) 43.7 Monocytes (%) (Auto) 6.0 Eosinophils (%) (Auto) 1.1 Basophils (%) (Auto) 0.7 Neutrophils # (Auto) 3.9 Lymphocytes # (Auto) 3.5 Monocytes # (Auto) 0.5 Eosinophils # (Auto) 0.1 Basophils # (Auto) 0.1 CBC Comment Prothrombin Time 12.5 H INR International Normalized Ratio 1.2 Coagulation Comments Sodium Level 138 Potassium Level 3.7 Chloride Level 104 Carbon Dioxide Level 26.9 Anion Gap 7 L Blood Urea Nitrogen 12 Creatinine 0.89 Estimated GFR/1.73 m2 71 BUN/Creatinine Ratio 13.5 Glucose Level 87 Calcium Level 8.2 L Total Bilirubin 0.2 Aspartate Amino Transf (AST/SGOT) 18 Alanine Aminotransferase (ALT/SGPT) 16 Alkaline Phosphatase 52 Total Protein 7.6 Albumin 3.9 Globulin 3.7 Albumin/Globulin Ratio 1.1 Chemistry Comments Medical Decision Making Additional information obtaine: old records, PCP Findings My interview with the patient that became clear that her primary reason for coming to the ED was to get treatment for anxiety via Valium. Looking through her chart it is notable that she has had multiple prescriptions for Suboxone. In addition she was recently prescribed Valium in the last week from her primary care. She was prescribed a total of 40 pills I discussed that with the patient that she is receiving the appropriate treatment for a suspected DVT and that she has a already received the appropriate prescription for anxiety and her ongoing substance abuse problem with narcotics Not present in any acute distress her leg is not swollen and not red. I am g oing to discharge this patient for further evaluation in the outpatient setting General Diff Dx:Considerations: Unlikely: Abrasion, Contusion, Fracture, Hematoma, Laceration, Malunion, Neurovascular injury, Open fracture, Sprain, Ulcer, Other Knee Diff Dx:Considerations: Unlikely: Abrasion, Arthritis, Contusion, DJD, Fracture-femur, Fracture-fibula, Fracture-patella, Fracture-tibia, Gout, Hematoma, Laceration, Meniscus injury, Neurovascular injury, Open fracture, Rheumatoid arthritis, Septic, Sprain, Sprain-MCL, Sprain-LCL, Sprain-ACL, Sprain-PCL, Other Ankle Diff Dx:Considerations: Include: Abrasion, Arthritis, Contusion, DJD, Fracture-metatarsal, Fracture-fibula, Fracture-tarsal, Fracture-tibia, Gout, Hematoma, Laceration, Malunion, Neurovascular injury, Nonunion, Open fracture, Osteomyelitis, Rheumatoid arthritis, Sprain, Septic, Ulcer, Other Foot Diff Dx:Considerations: Include: Abrasion, Arthritis, Cellulitis, Contusi on, Dislocation, DJD, Fracture-metatarsal, Fracture-phalynx, Fracture-tarsal, Gout, Hematoma, Ingrown toenail, Laceration, Malunion, Neurovascular injury, Open fracture, Paronychia, Puncture, Rheumatoid, Sprain, Septic, Subungual hematoma, Ulcer, Other Toe Diff Dx:Considerations: Unlikely: Abrasion, Cellulitis, Contusion, Dislocation, Felon, Fracture, Hematoma, Laceration, Neurovascular injury, Open fracture, Paronychia, Subungual hematoma, Other Departure Disposition: 01 HOME / SELF CARE / HOMELESS Impression: Primary Impression: Anxiety Additional Impression: DVT (deep venous thrombosis) Condition: Stable Discharge Instructions: Substance Use Disorder Referrals: NO PRIMARY CARE PROVIDER (PCP) Signature Scribe Signature: t Attestation: Scribed for Kevyn Covarrubias Monogram Machine Operator by Kevyn Vela NP . 01/05/25 21:32 KEVYN COVARRUBIAS NP Jan 05, 2025 21:26
[2025-01-05 21:36] VITALS: TEMP 97.8
== END 2025-01-05 21:38 | disposition home or self-care (01) ==
LOC: ER 15:36
DX: F41.9 Anxiety disorder, unspecified (principal); Z90.49 Acquired absence of other specified parts of digestive tract; Z79.01 Long term (current) use of anticoagulants; Z86.73 Personal history of transient ischemic attack (TIA), and cerebral infarction without residual deficits; Z88.6 Allergy status to analgesic agent; Z91.040 Latex allergy status
CPT/HCPCS: 80053; 85025; 85610; 99283

== ENCOUNTER 2025-02-08 17:03 | Emergency (ER) | payer MEDICAID ==
[~2025-02-08] VITALS: Ht 162.6 cm; Wt 66.3 kg
--- NOTE | 2025-02-08 20:45 | VASCULAR REPORT ---
Bilateral lower extremity venous duplex CLINICAL HISTORY: Right thigh pain. COMPARISON: VASC VL VENOUS on DOS: 12/28/24 TECHNIQUE: Duplex Doppler evaluation of the deep venous systems of the right lower extremity from the common femoral veins to the popliteal veins including color Doppler and spectral/pulsed waveform analysis was performed. FINDINGS: RIGHT SIDE: The common femoral vein demonstrates appropriate compressibility and waveform variability. There is compressibility/patency of the great saphenous vein at the proximal thigh. The femoral vein demonstrates appropriate compressibility and waveform variability. The deep femoral vein demonstrates appropriate compressibility and waveform variability. The popliteal vein demonstrates appropriate compressibility and waveform variability. There is normal compressibility at the tibioperoneal trunk. IMPRESSION: No right femoropopliteal venous thrombosis.
[2025-02-08 20:57] LABS: MEAN PLATELET VOLUME 7.8 FL (7.4-10.4); RED CELL DISTRIBUTION WIDTH 13.8 % (11.5-14.5)
[2025-02-08 21:12] LABS: CREATININE 0.80 MG/DL (0.40-0.90); TOTAL CARBON DIOXIDE 27.2 MMOL/L (24-32); eCRCL 83 ML/MIN; eGFR 81 ML/MIN
--- NOTE | 2025-02-08 21:21 | Physician Documentation ---
History of Present Illness ~ Chief Complaint: Leg Pain Stated Complaint: POSSIBLE BLOOD CLOT Time Seen by MD: 17:39 Primary Medical Doctor: [facility], [place] Mode of Arrival: POV, Ambulatory HPI 39-year-old female who presents to the emergency department for evaluation of right thigh pain that she feels may be DVT in origin. Referred to the emergency department primary care physician for evaluation. She is on current Eliquis therapy. No shortness of breath, palpitations or dyspnea on exertion. No recent illness injury infections or travels. Tetanus witin 5 years: Yes Medication Reconciliation Allergies: Coded Allergies: latex (Verified Allergy, Intermediate, 01/05/25) buspirone (Unverified Allergy, Unknown, 01/05/25) ibuprofen (Verified Allergy, Unknown, 01/05/25) PT STATES DR IN [place] TOLD HER TO STOP TAKING ketorolac (Unverified Allergy, Unknown, 01/05/25) tramadol (Unverified Allergy, Unknown, 01/05/25) Uncoded Allergies: MUSHROOMS (Allergy, Unknown, 06/06/17) Scheduled Apixaban (Eliquis), 1 TAB PO UD Buprenorphine HCl/Naloxone HCl (Buprenorphine-Nalox 8-2Mg Film), 0.5-1 STRIP SL TID, (Reported) Hydrocodone/Acetaminophen (Allison 5-325 Tablet), 1 TAB PO Q12H PRN Prednisone* (Prednisone*), 2 TAB PO DAILY Vortioxetine Hydrobromide (Brintellix), 1 TAB PO DAILY, (Reported) Scheduled PRN Alprazolam (Alprazolam), 1 TAB PO BID PRN for anxiety attack, (Reported) Cyclobenzaprine* (Cyclobenzaprine*), 1 TAB PO TID PRN for pain Diazepam (Diazepam), 5 MG PO Q8H PRN for muscle spasms Metoclopramide HCl (Reglan), 1 TAB PO Q8H PRN for migraine ONDANSETRON ODT 4mg tablet (Ondansetron Odt), 1 TAB PO Q8H PRN for nausea, (Reported) Past Medical History Past Medical History: CVA/TIA/Stroke, Headache, Bronchitis, *MUSCULOSKELETAL*, Extremity Fracture, Anxiety, Depression Past Surgical History: cholecystectomy Alcohol Use: None Drug Use: none Lives with: Spouse, Family Lives In: Home Review of Systems All Other Systems at this time: Reviewed and Negative Musculoskeletal: Reports: see HPI Physical Exam Vital Signs: RN Vital Signs have been reviewed: Yes, Temperature: 97.7, Source: Temporal, Heart Rate: 89, Respiratory Rate: 16, BP: 105/70, Pulse Oximetry: 99, Weight: 66.300 General Appearance: alert, WD/WN, mild distress Head: normal inspection EENT: PERRL/EOMI Neck: non-tender Chest: no accessory muscle use Cardiovascular: normal peripheral pulses Gastrointestinal: increased bowel sounds Back: normal inspection Pelvis: normal Hips: normal inspection Legs: normal inspection, soft tissue tenderness, other (Allodynia to the right mid thigh.) Knees: normal inspection Ankles: normal inspection Skin: normal color Lymphatic: normal inspection Neurologic: oriented x4 Psychiatric: normal mood/affect Progress Results/Orders Results/Orders Orders - PHAM MULLER PAC Vl Venous (02/08/25 18:51) Completed Orders - PHAM MULLER PAC Vl Venous (02/08/25 18:51) CK (02/08/25 18:51) Cbc/Diff (02/08/25 18:51) CMP (02/08/25 18:51) C-Reactive Protein (02/08/25 18:54) Vital Signs 02/08/25 02/08/25 02/08/25 02/08/25 17:14 18:21 18:23 21:35 Temp 97.7 98.1 Pulse 89 70 Resp 15 18 16 18 B/P (MAP) 105/70 132/80 Pulse Ox 99 99 Laboratory Tests Test 02/08/25 20:45 White Blood Count 8.9 Red Blood Count 4.47 Hemoglobin 13.9 Hematocrit 40.1 Mean Corpuscular Volume 89.7 Mean Corpuscular Hemoglobin 31.1 H Mean Corpuscular Hemoglobin Concent 34.6 Red Cell Distribution Width 13.8 Platelet Count 248 Mean Platelet Volume 7.8 Neutrophils (%) (Auto) 47.9 Lymphocytes (%) (Auto) 44.0 Monocytes (%) (Auto) 6.0 Eosinophils (%) (Auto) 1.5 Basophils (%) (Auto) 0.6 Neutrophils # (Auto) 4.3 Lymphocytes # (Auto) 3.9 Monocytes # (Auto) 0.5 Eosinophils # (Auto) 0.1 Basophils # (Auto) 0.1 CBC Comment Sodium Level 142 Potassium Level 3.6 Chloride Level 109 H Carbon Dioxide Level 27.2 Anion Gap 6 L Blood Urea Nitrogen 8 Creatinine 0.80 Estimated GFR/1.73 m2 81 BUN/Creatinine Ratio 10.0 Glucose Level 111 H Calcium Level 8.0 L Total Bilirubin 0.2 Aspartate Amino Transf (AST/SGOT) 12 Alanine Aminotransferase (ALT/SGPT) 16 Alkaline Phosphatase 39 L Total Creatine Kinase 51 C-Reactive Protein < 0.05 Total Protein 6.7 Albumin 3.5 Globulin 3.2 Albumin/Globulin Ratio 1.1 Chemistry Comments Medical Decision Making Additional information obtaine: family Findings 39-year-old female referred to the emergency department for evaluation of possible DVT to the right thigh. 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 She has been taking her medication as prescribed. She has had no syncope, palpitations or shortness a breath. Awoke with pain to her mid thigh that feels similar to the DVT pain of the left lower calf. Patient otherwise has a complaint of right shoulder pain for which she understands she has calcific tendinitis and we will follow up with the ortho for that complaint. All labs obtained and are reassuring. She has no evidence of myositis, CK is normal in CRP is normal. Electrolytes within normal limits other than mild hypocalcemia. Vascular imaging also reassuring for no DVT. Patient is discharged in the emergency department aftercare instructions to follow up with the primary care physician for follow up on tonights labs. General Diff Dx:Considerations: Include: Abrasion, Contusion, Fracture, Hematoma, Laceration, Malunion, Neurovascular injury, Open fracture, Sprain, Ulcer, Other (Vascular occlusion, complex regional pain syndrome, infectious etiologies such as zoster) Knee Diff Dx:Considerations: Include: Other Ankle Diff Dx:Considerations: Include: Other (She will return) Foot Diff Dx:Considerations: Include: Other (Noncontributory) Toe Diff Dx:Considerations: Include: Other (Noncontributory) Departure Disposition: 01 HOME / SELF CARE / HOMELESS Impression: Primary Impression: Myalgia Additional Impression: Mild hypocalcemia Condition: Stable Discharge Instructions: Musculoskeletal Pain Additional Instructions: All your labs and imaging obtained tonight are all reassuring. No clear evidence for a your musculoskeletal pain and have your right leg. Please co ntinue with the medications and follow up with the primary care physician for additional evaluation and workup. Thank you for visiting [facility]. Have a charity [place]. Referrals: NO PRIMARY CARE PROVIDER (PCP) Education Educated: Patient, Family Educated regarding: diagnosis, treatment, prognosis, need for follow up Signature Scribe Signature: . Attestation: . PHAM MULLER [facility] Feb 08, 2025 21:21
[2025-02-08 21:35] VITALS: BP 132/80; PULSE 70; RESP 18; TEMP 98.1; O2SAT 99
== END 2025-02-08 21:37 | disposition home or self-care (01) ==
LOC: ER 17:03
DX: M79.10 Myalgia, unspecified site (principal); E83.51 Hypocalcemia; F41.9 Anxiety disorder, unspecified; F32.A Depression, unspecified; Z86.73 Personal history of transient ischemic attack (TIA), and cerebral infarction without residual deficits; Z91.040 Latex allergy status; Z88.6 Allergy status to analgesic agent; Z88.5 Allergy status to narcotic agent; Z88.8 Allergy status to other drugs, medicaments and biological substances; Z90.49 Acquired absence of other specified parts of digestive tract; Z79.899 Other long term (current) drug therapy
CPT/HCPCS: 36415; 80053; 82550; 85025; 86140; 93971; 99284